=== PATIENT | male | born 1965 | race Native Hawaiian/Other Pacific Islander ===

== ENCOUNTER 2018-10-08 10:57 | Emergency (ER) | payer MEDICARE, OTHER ==
[~2018-10-08] VITALS: Ht 170.2 cm; Wt 88.1 kg
[~2018-10-08 10:57] MED LIST: ATOM40 PO; CLON-570 PO; DIVA500T69 PO; GABA-533 PO; OLAN5TAB40 PO
[2018-10-08] MEDS ORDERED: QUET200T PO (11:51)
[2018-10-08] MEDS ORDERED: ATOM40 PO (11:51)
[2018-10-08] MEDS ORDERED: VALP250S23 PO (11:51)
[2018-10-08] MEDS ORDERED: VITAD1000 PO (11:51)
[2018-10-08] MEDS ORDERED: LEVO25TA9 PO (11:51)
[2018-10-08] MEDS ORDERED: LITH300C3 PO (11:51)
[2018-10-08] MEDS ORDERED: LORA10TA7 PO (11:51)
[2018-10-08] MEDS ORDERED: PALI234D IM (11:51)
[2018-10-08] MEDS ORDERED: MELA5TAB12 PO (11:51)
[2018-10-08] MEDS ORDERED: ARIP10TA8 PO (11:51)
[2018-10-08] MEDS ORDERED: METO25 PO (11:51)
[2018-10-08] MEDS ORDERED: TRAZ150 PO (11:51)
[2018-10-08 12:19] LABS: HEMATOCRIT 38.7 % (41-53); HEMOGLOBIN 12.9 g/dL (13.5-17.5); MEAN CORPUSCULAR HEMOGLOBIN 32.3 pg (26.0-34.0); MEAN CORPUSCULAR HGB CONC 33.2 G/dL (31.0-37.0); MEAN CORPUSCULAR VOLUME 97 fL (80-100); PLATELET COUNT (AUTO) 145 K/uL (150-450); RED BLOOD CELL COUNT(AUTO) 3.98 MIL/uL (4.50-5.90); RED CELL DISTRIBUTION WIDTH 13.3 % (11.5-14.5)
[2018-10-08 12:27] LABS: ANION GAP 3 mmol/L (8-16); CALCIUM, TOTAL 9.2 mg/dL (8.8-10.5); CARBON DIOXIDE 30 mmol/L (22-29); CHLORIDE 105 mmol/L (98-107); CREATININE 0.89 mg/dL (0.60-1.30); GLOMERULAR FILTR. RATE CALC > 60 mL/min (>60); GLUCOSE,RANDOM 86 mg/dL (70-110); POTASSIUM 4.2 mmol/L (3.5-5.1); SODIUM SERUM 138 mmol/L (136-145); UREA NITROGEN, BLOOD 13 mg/dL (7-18)
[2018-10-08 12:30] LABS: LITHIUM 0.97 mmol/L (0.60-1.20)
[2018-10-08 12:40] LABS: ALANINE AMINOTRANSFERASE 16 U/L (12-78); ALBUMIN 2.9 g/dL (3.4-5.0); ALKALINE PHOSPHATASE 65 U/L (46-116); ASPARTATE AMINOTRANSFERASE 26 U/L (15-37); BILIRUBIN,TOTAL 0.4 mg/dL (0.1-1.0); THYROID STIMULATING HORMONE 2.36 uIU/mL (0.36-3.74); TOTAL PROTEIN, SERUM 6.6 g/dL (6.4-8.2)
[2018-10-08 13:32] LABS: BAND NEUTROPHILS % (MANUAL) 25 % (0-5); LYMPHOCYTES % (MANUAL) 4 % (22-44); MONOCYTES % (MANUAL) 9 % (2-9); SEGMENTED NEUTROPHILS % 62 % (40-70)
[2018-10-08 15:17] LABS: APPEARANCE,URINE CLEAR (CLEAR); BILIRUBIN,URINE NEGATIVE (NEGATIVE); GLUCOSE, URINE (UA) NEGATIVE (NEGATIVE); KETONES,URINE NEGATIVE (NEGATIVE); LEUKOCYTE ESTERASE ,URINE NEGATIVE (NEGATIVE); NITRATE,URINE NEGATIVE (NEGATIVE); OCCULT BLOOD,URINE NEGATIVE (NEGATIVE); PROTEIN,URINE NEGATIVE (NEGATIVE)
[2018-10-08 15:22] LABS: AMPHET/METH SCREEN,URINE NEGATIVE (NEGATIVE); BARBITURATE SCREEN, URINE NEGATIVE (NEGATIVE); BENZODIAZEPINES SCREEN,URINE NEGATIVE (NEGATIVE); CANNABINOID SCREEN,URINE NEGATIVE (NEGATIVE); COCAINE SCREEN,URINE NEGATIVE (NEGATIVE); METHADONE SCREEN, URINE NEGATIVE (NEGATIVE); OPIATE SCREEN,URINE NEGATIVE (NEGATIVE)
[2018-10-08 15:23] LABS: PHENCYCLIDINE SCREEN,URINE NEGATIVE (NEGATIVE)
[2018-10-08] MEDS ORDERED: ACETAMINOPHEN 500 MG TABLET PO ONE (16:00)
[2018-10-08 16:46] LABS: INFLUENZA TYPE A NEGATIVE FOR TYPE A (NEGATIVE); INFLUENZA TYPE B NEGATIVE FOR TYPE B (NEGATIVE)
[2018-10-08 18:12] VITALS: BP 116/50
== END 2018-10-08 18:56 | disposition home or self-care (01) ==
LOC: EMS 11:00
DX: F20.9 Schizophrenia, unspecified (principal); R25.1 Tremor, unspecified; E03.9 Hypothyroidism, unspecified; K59.00 Constipation, unspecified; Z79.899 Other long term (current) drug therapy; Z88.8 Allergy status to other drugs, medicaments and biological substances
CPT/HCPCS: 36415; 80053; 80178; 80307; 81003; 84443; 85025; 87804; 93005; 99285; G0480

== ENCOUNTER 2021-07-16 16:03 | Emergency (ER) | payer MEDICARE, OTHER ==
[~2021-07-16] VITALS: Ht 172.7 cm; Wt 90.9 kg
[~2021-07-16 16:03] MED LIST changes: +ARIP10TA38 PO; -ATOM40 PO; +ATOM40CA9 PO; +CHOL100018 PO; -CLON-570 PO; -DIVA500T69 PO; -GABA-533 PO; +LEVO25TA9 PO; +LITH300C3 PO; +LORA10TA7 PO; +MELA5TAB12 PO; +METO25 PO; -OLAN5TAB40 PO; +PALI234D IM; +QUET200T PO; +TRAZ150T80 PO; +VALP250S23 PO
[2021-07-16 17:27] LABS: COVID AG,FIA SOURCE NASAL SWAB
[2021-07-16 17:50] LABS: INFLUENZA TYPE A NEGATIVE FOR TYPE A (NEGATIVE); INFLUENZA TYPE B NEGATIVE FOR TYPE B (NEGATIVE)
[2021-07-16] MEDS ORDERED: ACETAMINOPHEN 325 MG TABLET ONE (20:55)
[2021-07-16 21:03] VITALS: BP 129/75
[2021-07-16] MEDS ORDERED: ACETAMINOPHEN 325 MG TABLET PO ONE (21:15)
== END 2021-07-16 21:31 | disposition home or self-care (01) ==
LOC: EMS 16:06
DX: U07.1 COVID-19 (principal); I25.10 Atherosclerotic heart disease of native coronary artery without angina pectoris; F20.9 Schizophrenia, unspecified
CPT/HCPCS: 71045; 87804; 99284

== ENCOUNTER 2021-07-25 09:40 | Inpatient (IN) | payer MEDICARE, OTHER ==
[~2021-07-25] VITALS: Ht 182.9 cm; Wt 82.0 kg
[2021-07-25] MEDS ORDERED: DiphenhydrAMINE HCL 50 MG/ML VIAL IVP ONE (10:45)
[2021-07-25 10:53] LABS: BASOPHILS % (AUTO) 0.1 % (0.0-2.0); EOSINOPHILS % (AUTO) 0.3 % (1.0-6.0); HEMATOCRIT 39.7 % (41-53); HEMOGLOBIN 13.4 g/dL (13.5-17.5); LYMPHOCYTES # (AUTO) 0.5 K/uL (1.0-4.8); MEAN CORPUSCULAR HEMOGLOBIN 32.2 pg (26.0-34.0); MEAN CORPUSCULAR HGB CONC 33.8 G/dL (31.0-37.0); MEAN CORPUSCULAR VOLUME 95 fL (80-100); MONOCYTES # (AUTO) 0.9 K/uL (0.1-1.0); MONOCYTES % (AUTO) 15.1 % (2.0-9.0); NEUTROPHILS # (AUTO) 4.5 K/uL (1.8-7.7); NEUTROPHILS % (AUTO) 76.5 % (40.0-70.0); PLATELET COUNT (AUTO) 164 K/uL (150-450); RED BLOOD CELL COUNT(AUTO) 4.16 MIL/uL (4.50-5.90); RED CELL DISTRIBUTION WIDTH 13.2 % (11.5-14.5)
[2021-07-25 11:07] LABS: CALCIUM, TOTAL 9.4 mg/dL (8.8-10.5); CREATININE 1.51 mg/dL (0.60-1.30); POTASSIUM 4.2 mmol/L (3.5-5.1)
[2021-07-25 11:12] LABS: ALBUMIN 2.4 g/dL (3.4-5.0); BILIRUBIN,TOTAL 0.5 mg/dL (0.1-1.0); TOTAL PROTEIN, SERUM 7.3 g/dL (6.4-8.2)
[2021-07-25] MEDS ORDERED: HALO10 PO (11:24)
[2021-07-25] MEDS ORDERED: PALI234D IM (11:24)
[2021-07-25 12:46] LABS: COVID AG,FIA SOURCE NASOPHARYNGEAL
[2021-07-25 16:10] VITALS: BP 123/62
[2021-07-25] MEDS ORDERED: DiphenhydrAMINE HCL 50 MG/ML VIAL IVP PRN (16:15)
[2021-07-25] MEDS ORDERED: GuaiFENesin/D-METHORPHAN/PHENYLEPH 5 ML LIQUID ORAL.SYG PO SCH (18:00)
[2021-07-25] MEDS ORDERED: GuaiFENesin/D-METHORPHAN/PHENYLEPH 5 ML LIQUID ORAL.SYG PO PRN (18:15)
[2021-07-25 20:33] VITALS: BP 130/68
[2021-07-25] MEDS ORDERED: MORPHINE SULFATE 2 MG/ML SYRINGE IVP PRN (22:00)
[2021-07-25] MEDS ORDERED: ALBUTEROL SULFATE 2.5 MG/0.5 ML NEB SOLUTION NEB PRN (22:00)
[2021-07-25] MEDS ORDERED: BISACODYL 10 MG RECTAL RECTAL SUPPOSITORY PR PRN (22:00)
[2021-07-25] MEDS ORDERED: MAGNESIUM HYDROXIDE SUSPENSION 30 ML UDCUP PO PRN (22:00)
[2021-07-25] MEDS ORDERED: ZOLPIDEM TARTRATE 5 MG TABLET PO PRN (22:00)
[2021-07-25] MEDS ORDERED: HYDROCODONE/ACETAMINOPHEN 5-325 MG TABLET PO PRN (22:00)
[2021-07-25] MEDS ORDERED: ONDANSETRON HCL 4 MG/2 ML VIAL IVP PRN (22:00)
[2021-07-25] MEDS ORDERED: ACETAMINOPHEN 325 MG TABLET PO PRN (22:00)
[2021-07-25] MEDS ORDERED: IPRATROPIUM BROMIDE 0.5 MG/2.5 ML NEB SOLUTION NEB PRN (22:00)
[2021-07-25 23:04] LABS: LITHIUM 2.54 mmol/L (0.60-1.20)
[2021-07-25 23:54] LABS: ABG BASE EXCESS 5.4 mmol/L (-2.0-3.0); ABG CARBOXYHEMOGLOBIN 0.4 % (0.0-1.5); ABG HCO3 28.6 mmol/L (22.0-26.0); ABG METHEMOGLOBIN 0.3 % (0.0-1.5); ABG OXYGEN CONTENT 15.1 mL/dL (15.0-23.0); ABG OXYHEMOGLOBIN 89.4 % (94.0-100.0); ABG PCO2 45 mmHg (35-45); PO2, ARTERIAL BG 60.7 mmHg (84.0-92.0); SOURCE, BLOOD GAS ARTERIAL; TEMPERATURE, FAHRENHEIT, BG 98.6 FAHREN (96.0-98.6)
[2021-07-25 23:55] LABS: O2 DEVICE,BLOOD GAS CANNULA (ROOM AIR); SITE, BLOOD GAS RT RADIAL
[2021-07-26] VITALS (7 sets, daily range): BP systolic 107–142; BP diastolic 59–73
[2021-07-26] MEDS ORDERED: SODIUM CHLORIDE 0.9% 100 ML ONE (00:21)
[2021-07-26] MEDS: HEPARIN SODIUM,PORCINE 5,000 UNITS/ML VIAL SQ SCH ×3 (00:24→16:01)
[2021-07-26] MEDS: PIPERACILLIN/TAZO 3.375 GM/D5W 50 ML IV SCH ×2 (00:25→04:19)
[2021-07-26] MEDS: LEVOTHYROXINE SODIUM 25 MCG TABLET PO SCH (06:01)
[2021-07-26 07:16] LABS: BASOPHILS % (AUTO) 0.2 % (0.0-2.0); EOSINOPHILS % (AUTO) 0.1 % (1.0-6.0); HEMOGLOBIN 12.7 g/dL (13.5-17.5); LYMPHOCYTES # (AUTO) 0.7 K/uL (1.0-4.8); LYMPHOCYTES % (AUTO) 8.4 % (22.0-44.0); MEAN CORPUSCULAR HEMOGLOBIN 33.3 pg (26.0-34.0); MEAN CORPUSCULAR HGB CONC 34.4 G/dL (31.0-37.0); MEAN CORPUSCULAR VOLUME 97 fL (80-100); MONOCYTES # (AUTO) 1.1 K/uL (0.1-1.0); MONOCYTES % (AUTO) 12.5 % (2.0-9.0); NEUTROPHILS # (AUTO) 6.9 K/uL (1.8-7.7); NEUTROPHILS % (AUTO) 78.8 % (40.0-70.0); PLATELET COUNT (AUTO) 194 K/uL (150-450); RED BLOOD CELL COUNT(AUTO) 3.82 MIL/uL (4.50-5.90); RED CELL DISTRIBUTION WIDTH 13.5 % (11.5-14.5)
[2021-07-26 07:27] LABS: ALBUMIN 2.1 g/dL (3.4-5.0); BILIRUBIN,TOTAL 0.7 mg/dL (0.1-1.0); CALCIUM, TOTAL 9.2 mg/dL (8.8-10.5); CREATININE 1.35 mg/dL (0.60-1.30); POTASSIUM 4.3 mmol/L (3.5-5.1); TOTAL PROTEIN, SERUM 7.1 g/dL (6.4-8.2)
[2021-07-26] MEDS: CHOLECALCIFEROL (VIT D3) 1,000 UNITS [25 MCG] TABLET PO SCH (08:23)
[2021-07-26] MEDS: HALOPERIDOL 10 MG TABLET PO SCH (08:23)
[2021-07-26] MEDS: LORATADINE 10 MG TABLET PO SCH (08:23)
[2021-07-26] MEDS: METOPROLOL TARTRATE 25 MG TABLET PO SCH ×2 (08:23→21:51)
[2021-07-26] MEDS: DOCUSATE SODIUM 100 MG CAPSULE PO SCH ×2 (08:23→21:52)
[2021-07-26] MEDS: ATOMOXETINE HCL 40 MG CAPSULE PO SCH ×2 (08:24→21:53)
[2021-07-26] MEDS: ARIPiprazole 10 MG TABLET PO SCH (08:24)
[2021-07-26] MEDS: PANTOPRAZOLE SODIUM 40 MG/VIAL IVP SCH (08:24)
[2021-07-26] MEDS: VALPROIC ACID 250 MG CAPSULE PO SCH ×3 (08:24→21:53)
[2021-07-26] MEDS ORDERED: LITHIUM CARBONATE 300 MG CAPSULE PO SCH (09:00)
[2021-07-26] MEDS ORDERED: REMDESIVIR 200 MG in SODIUM CHLORIDE 0.9% 250 ML IV ONE (09:45)
[2021-07-26] MEDS: DEXAMETHASONE SOD PHOS 4 MG/ML VIAL IVP SCH (11:10)
[2021-07-26 11:33] LABS: C-REACTIVE PROTEIN QUANT 20.78 mg/dL (0.00-0.30)
[2021-07-26] MEDS: DOXYCYCLINE HYCLATE 100 MG TABLET PO SCH ×2 (13:56→21:53)
[2021-07-26] MEDS: CefTRIAXone 1 GM/DEXTROSE 50 ML IV SCH (13:57)
[2021-07-26] MEDS ORDERED: SODIUM CHLORIDE 0.9% 500 ML IV ONE (15:11)
[2021-07-26] MEDS: QUEtiapine FUMARATE 200 MG TABLET PO SCH (21:51)
[2021-07-26] MEDS: TraZODone HCL 150 MG TABLET PO SCH (21:52)
[2021-07-26] MEDS: MELATONIN 5 MG TABLET PO SCH (21:52)
[2021-07-27] MEDS: HEPARIN SODIUM,PORCINE 5,000 UNITS/ML VIAL SQ SCH ×3 (00:10→15:16)
[2021-07-27] MEDS: LEVOTHYROXINE SODIUM 25 MCG TABLET PO SCH (05:35)
[2021-07-27 05:46] VITALS: BP 123/70
[2021-07-27 06:38] LABS: C-REACTIVE PROTEIN QUANT 17.07 mg/dL (0.00-0.30)
[2021-07-27] MEDS: METOPROLOL TARTRATE 25 MG TABLET PO SCH ×2 (08:00→22:17)
[2021-07-27] MEDS: CHOLECALCIFEROL (VIT D3) 1,000 UNITS [25 MCG] TABLET PO SCH (08:00)
[2021-07-27] MEDS: HALOPERIDOL 10 MG TABLET PO SCH (08:00)
[2021-07-27] MEDS: DOCUSATE SODIUM 100 MG CAPSULE PO SCH ×2 (08:00→22:18)
[2021-07-27] MEDS: ATOMOXETINE HCL 40 MG CAPSULE PO SCH ×2 (08:00→22:18)
[2021-07-27] MEDS: DOXYCYCLINE HYCLATE 100 MG TABLET PO SCH ×2 (08:00→22:18)
[2021-07-27] MEDS: ARIPiprazole 10 MG TABLET PO SCH (08:00)
[2021-07-27] MEDS: LORATADINE 10 MG TABLET PO SCH (08:00)
[2021-07-27] MEDS: VALPROIC ACID 250 MG CAPSULE PO SCH ×3 (08:00→22:18)
[2021-07-27] MEDS: DEXAMETHASONE SOD PHOS 4 MG/ML VIAL IVP SCH (08:01)
[2021-07-27] MEDS: PANTOPRAZOLE SODIUM 40 MG/VIAL IVP SCH (08:01)
[2021-07-27 08:30] VITALS: BP 136/75
[2021-07-27] MEDS: REMDESIVIR 100 MG in SODIUM CHLORIDE 0.9% 250 ML IV SCH (10:18)
[2021-07-27] MEDS: CefTRIAXone 1 GM/DEXTROSE 50 ML IV SCH (12:53)
[2021-07-27 14:26] LABS: BASOPHILS % (AUTO) 0.2 % (0.0-2.0); EOSINOPHILS % (AUTO) 0.1 % (1.0-6.0); HEMATOCRIT 35.9 % (41-53); LYMPHOCYTES # (AUTO) 0.3 K/uL (1.0-4.8); LYMPHOCYTES % (AUTO) 4.3 % (22.0-44.0); MEAN CORPUSCULAR HEMOGLOBIN 32.3 pg (26.0-34.0); MEAN CORPUSCULAR HGB CONC 33.5 G/dL (31.0-37.0); MEAN CORPUSCULAR VOLUME 97 fL (80-100); MONOCYTES # (AUTO) 0.4 K/uL (0.1-1.0); MONOCYTES % (AUTO) 5.5 % (2.0-9.0); NEUTROPHILS # (AUTO) 7.3 K/uL (1.8-7.7); PLATELET COUNT (AUTO) 236 K/uL (150-450); RED BLOOD CELL COUNT(AUTO) 3.72 MIL/uL (4.50-5.90); RED CELL DISTRIBUTION WIDTH 13.5 % (11.5-14.5)
[2021-07-27 14:28] LABS: NEUTROPHILS % (AUTO) 89.9 % (40.0-70.0)
[2021-07-27 14:48] LABS: ANION GAP 2 mmol/L (8-16); CALCIUM, TOTAL 9.4 mg/dL (8.8-10.5); CARBON DIOXIDE 33 mmol/L (22-29); CHLORIDE 107 mmol/L (98-107); CREATININE 1.16 mg/dL (0.60-1.30); GLOMERULAR FILTR. RATE CALC > 60 mL/min (>60); GLUCOSE,RANDOM 135 mg/dL (70-110); LITHIUM 2.26 mmol/L (0.60-1.20); POTASSIUM 4.5 mmol/L (3.5-5.1); SODIUM SERUM 142 mmol/L (136-145); UREA NITROGEN, BLOOD 38 mg/dL (7-18)
[2021-07-27 14:52] LABS: ALANINE AMINOTRANSFERASE 19 U/L (12-78); ALBUMIN 1.9 g/dL (3.4-5.0); ALKALINE PHOSPHATASE 110 U/L (46-116); ASPARTATE AMINOTRANSFERASE 40 U/L (15-37); BILIRUBIN,TOTAL 0.2 mg/dL (0.1-1.0); TOTAL PROTEIN, SERUM 6.9 g/dL (6.4-8.2)
[2021-07-27 16:02] VITALS: BP 125/73
[2021-07-27 19:39] VITALS: BP 138/71
[2021-07-27] MEDS: TraZODone HCL 150 MG TABLET PO SCH (22:17)
[2021-07-27] MEDS: QUEtiapine FUMARATE 200 MG TABLET PO SCH (22:18)
[2021-07-27] MEDS: MELATONIN 5 MG TABLET PO SCH (22:18)
[2021-07-28] MEDS: HEPARIN SODIUM,PORCINE 5,000 UNITS/ML VIAL SQ SCH ×4 (00:32→23:30)
[2021-07-28 04:26] VITALS: BP 123/72
[2021-07-28] MEDS: LEVOTHYROXINE SODIUM 25 MCG TABLET PO SCH (06:15)
[2021-07-28 06:30] LABS: BASOPHILS % (AUTO) 0.1 % (0.0-2.0); EOSINOPHILS % (AUTO) 0 % (1.0-6.0); HEMATOCRIT 33.9 % (41-53); HEMOGLOBIN 11.7 g/dL (13.5-17.5); LYMPHOCYTES # (AUTO) 0.7 K/uL (1.0-4.8); LYMPHOCYTES % (AUTO) 6.1 % (22.0-44.0); MEAN CORPUSCULAR HEMOGLOBIN 33.6 pg (26.0-34.0); MEAN CORPUSCULAR HGB CONC 34.5 G/dL (31.0-37.0); MEAN CORPUSCULAR VOLUME 97 fL (80-100); MONOCYTES # (AUTO) 1.1 K/uL (0.1-1.0); MONOCYTES % (AUTO) 10.5 % (2.0-9.0); NEUTROPHILS % (AUTO) 83.3 % (40.0-70.0); PLATELET COUNT (AUTO) 283 K/uL (150-450); RED BLOOD CELL COUNT(AUTO) 3.48 MIL/uL (4.50-5.90); RED CELL DISTRIBUTION WIDTH 13.2 % (11.5-14.5)
[2021-07-28 07:18] LABS: ALBUMIN 1.9 g/dL (3.4-5.0); BILIRUBIN,TOTAL 0.2 mg/dL (0.1-1.0); C-REACTIVE PROTEIN QUANT 6.56 mg/dL (0.00-0.30); CALCIUM, TOTAL 9.3 mg/dL (8.8-10.5); CREATININE 1.3 mg/dL (0.60-1.30); POTASSIUM 4.1 mmol/L (3.5-5.1); TOTAL PROTEIN, SERUM 6.7 g/dL (6.4-8.2)
[2021-07-28 07:32] VITALS: BP 128/67
[2021-07-28] MEDS: PANTOPRAZOLE SODIUM 40 MG/VIAL IVP SCH (09:23)
[2021-07-28] MEDS: HALOPERIDOL 10 MG TABLET PO SCH (09:24)
[2021-07-28] MEDS: DOXYCYCLINE HYCLATE 100 MG TABLET PO SCH ×2 (09:24→21:00)
[2021-07-28] MEDS: LORATADINE 10 MG TABLET PO SCH (09:24)
[2021-07-28] MEDS: DOCUSATE SODIUM 100 MG CAPSULE PO SCH ×2 (09:24→21:00)
[2021-07-28] MEDS: METOPROLOL TARTRATE 25 MG TABLET PO SCH ×2 (09:24→21:00)
[2021-07-28] MEDS: ARIPiprazole 10 MG TABLET PO SCH (09:24)
[2021-07-28] MEDS: ATOMOXETINE HCL 40 MG CAPSULE PO SCH ×2 (09:24→21:00)
[2021-07-28] MEDS: DEXAMETHASONE SOD PHOS 4 MG/ML VIAL IVP SCH (09:24)
[2021-07-28] MEDS: CHOLECALCIFEROL (VIT D3) 1,000 UNITS [25 MCG] TABLET PO SCH (09:25)
[2021-07-28] MEDS: VALPROIC ACID 250 MG CAPSULE PO SCH ×3 (09:25→21:00)
[2021-07-28] MEDS: REMDESIVIR 100 MG in SODIUM CHLORIDE 0.9% 250 ML IV SCH (09:26)
[2021-07-28] MEDS: CefTRIAXone 1 GM/DEXTROSE 50 ML IV SCH (11:53)
[2021-07-28 15:30] VITALS: BP 121/69
[2021-07-28 19:18] VITALS: BP 141/76
[2021-07-28] MEDS: MELATONIN 5 MG TABLET PO SCH (21:00)
[2021-07-28] MEDS: TraZODone HCL 150 MG TABLET PO SCH (21:00)
[2021-07-28] MEDS: QUEtiapine FUMARATE 200 MG TABLET PO SCH (21:00)
[2021-07-29 04:18] VITALS: BP 143/79
[2021-07-29] MEDS: LEVOTHYROXINE SODIUM 25 MCG TABLET PO SCH (06:12)
[2021-07-29 07:53] LABS: BASOPHILS % (AUTO) 0.4 % (0.0-2.0); EOSINOPHILS % (AUTO) 0.2 % (1.0-6.0); HEMATOCRIT 38.1 % (41-53); HEMOGLOBIN 13.3 g/dL (13.5-17.5); LYMPHOCYTES # (AUTO) 0.9 K/uL (1.0-4.8); LYMPHOCYTES % (AUTO) 13.2 % (22.0-44.0); MEAN CORPUSCULAR HEMOGLOBIN 33.9 pg (26.0-34.0); MEAN CORPUSCULAR HGB CONC 34.7 G/dL (31.0-37.0); MEAN CORPUSCULAR VOLUME 98 fL (80-100); MONOCYTES # (AUTO) 0.5 K/uL (0.1-1.0); MONOCYTES % (AUTO) 7.7 % (2.0-9.0); NEUTROPHILS # (AUTO) 5.4 K/uL (1.8-7.7); NEUTROPHILS % (AUTO) 78.5 % (40.0-70.0); PLATELET COUNT (AUTO) 334 K/uL (150-450); RED CELL DISTRIBUTION WIDTH 13.7 % (11.5-14.5)
[2021-07-29] MEDS: DEXAMETHASONE SOD PHOS 4 MG/ML VIAL IVP SCH (07:54)
[2021-07-29] MEDS: HEPARIN SODIUM,PORCINE 5,000 UNITS/ML VIAL SQ SCH ×3 (07:54→23:23)
[2021-07-29] MEDS: PANTOPRAZOLE SODIUM 40 MG/VIAL IVP SCH (07:55)
[2021-07-29] MEDS: VALPROIC ACID 250 MG CAPSULE PO SCH ×3 (07:55→20:22)
[2021-07-29] MEDS: HALOPERIDOL 10 MG TABLET PO SCH (07:55)
[2021-07-29] MEDS: ARIPiprazole 10 MG TABLET PO SCH (07:55)
[2021-07-29] MEDS: DOXYCYCLINE HYCLATE 100 MG TABLET PO SCH ×2 (07:56→20:21)
[2021-07-29] MEDS: DOCUSATE SODIUM 100 MG CAPSULE PO SCH ×2 (07:56→20:21)
[2021-07-29] MEDS: METOPROLOL TARTRATE 25 MG TABLET PO SCH ×2 (07:56→20:21)
[2021-07-29] MEDS: CHOLECALCIFEROL (VIT D3) 1,000 UNITS [25 MCG] TABLET PO SCH (07:56)
[2021-07-29] MEDS: ATOMOXETINE HCL 40 MG CAPSULE PO SCH ×2 (07:56→20:21)
[2021-07-29] MEDS: LORATADINE 10 MG TABLET PO SCH (07:56)
[2021-07-29 08:20] VITALS: BP 156/82
[2021-07-29 08:32] LABS: ALANINE AMINOTRANSFERASE 22 U/L (12-78); ALBUMIN 2.2 g/dL (3.4-5.0); ALKALINE PHOSPHATASE 149 U/L (46-116); ANION GAP 2 mmol/L (8-16); ASPARTATE AMINOTRANSFERASE 35 U/L (15-37); BILIRUBIN,TOTAL 0.3 mg/dL (0.1-1.0); CALCIUM, TOTAL 9.5 mg/dL (8.8-10.5); CARBON DIOXIDE 33 mmol/L (22-29); CHLORIDE 104 mmol/L (98-107); CREATININE 1.11 mg/dL (0.60-1.30); FERRITIN 1480 ng/mL (26-388); GLOMERULAR FILTR. RATE CALC > 60 mL/min (>60); GLUCOSE,RANDOM 99 mg/dL (70-110); POTASSIUM 3.8 mmol/L (3.5-5.1); SODIUM SERUM 139 mmol/L (136-145); TOTAL PROTEIN, SERUM 7.7 g/dL (6.4-8.2); UREA NITROGEN, BLOOD 33 mg/dL (7-18)
[2021-07-29] MEDS: REMDESIVIR 100 MG in SODIUM CHLORIDE 0.9% 250 ML IV SCH (09:38)
[2021-07-29] MEDS: CefTRIAXone 1 GM/DEXTROSE 50 ML IV SCH (11:33)
[2021-07-29 15:07] LABS: S PNEUMO SOURCE Urine; STREP PNEUMONIAE AG URINE Negative (Negative)
[2021-07-29 16:03] VITALS: BP 131/75
[2021-07-29 16:07] LABS: LEGIONELLA PNEUMO AG URINE Negative (Negative)
[2021-07-29] MEDS: MELATONIN 5 MG TABLET PO SCH (20:21)
[2021-07-29] MEDS: TraZODone HCL 150 MG TABLET PO SCH (20:21)
[2021-07-29] MEDS: QUEtiapine FUMARATE 200 MG TABLET PO SCH (20:21)
[2021-07-29 21:00] VITALS: BP 141/80
[2021-07-30 04:06] VITALS: BP 154/88
[2021-07-30] MEDS: LEVOTHYROXINE SODIUM 25 MCG TABLET PO SCH (05:41)
[2021-07-30 08:14] LABS: BASOPHILS % (AUTO) 0.2 % (0.0-2.0); EOSINOPHILS % (AUTO) 0.5 % (1.0-6.0); HEMATOCRIT 38.2 % (41-53); HEMOGLOBIN 13.1 g/dL (13.5-17.5); LYMPHOCYTES # (AUTO) 1.7 K/uL (1.0-4.8); LYMPHOCYTES % (AUTO) 30.3 % (22.0-44.0); MEAN CORPUSCULAR HGB CONC 34.2 G/dL (31.0-37.0); MEAN CORPUSCULAR VOLUME 96 fL (80-100); MONOCYTES # (AUTO) 0.6 K/uL (0.1-1.0); NEUTROPHILS # (AUTO) 3.2 K/uL (1.8-7.7); PLATELET COUNT (AUTO) 330 K/uL (150-450); RED BLOOD CELL COUNT(AUTO) 3.97 MIL/uL (4.50-5.90); RED CELL DISTRIBUTION WIDTH 13.5 % (11.5-14.5)
[2021-07-30 08:27] LABS: ANION GAP 3 mmol/L (8-16); CALCIUM, TOTAL 9.2 mg/dL (8.8-10.5); CARBON DIOXIDE 33 mmol/L (22-29); CHLORIDE 105 mmol/L (98-107); GLOMERULAR FILTR. RATE CALC > 60 mL/min (>60); GLUCOSE,RANDOM 87 mg/dL (70-110); POTASSIUM 4.1 mmol/L (3.5-5.1); SODIUM SERUM 141 mmol/L (136-145); UREA NITROGEN, BLOOD 25 mg/dL (7-18)
[2021-07-30 08:54] VITALS: BP 142/66
[2021-07-30] MEDS: DOCUSATE SODIUM 100 MG CAPSULE PO SCH ×2 (09:00→21:15)
[2021-07-30 09:14] LABS: ALANINE AMINOTRANSFERASE 19 U/L (12-78); ALKALINE PHOSPHATASE 129 U/L (46-116); ASPARTATE AMINOTRANSFERASE 27 U/L (15-37); BILIRUBIN,TOTAL 0.4 mg/dL (0.1-1.0); C-REACTIVE PROTEIN QUANT 1.63 mg/dL (0.00-0.30); FERRITIN 1294 ng/mL (26-388); TOTAL PROTEIN, SERUM 6.7 g/dL (6.4-8.2)
[2021-07-30] MEDS: VALPROIC ACID 250 MG CAPSULE PO SCH ×4 (09:18→21:15)
[2021-07-30] MEDS: LORATADINE 10 MG TABLET PO SCH (09:18)
[2021-07-30] MEDS: PANTOPRAZOLE SODIUM 40 MG/VIAL IVP SCH (09:18)
[2021-07-30] MEDS: ARIPiprazole 10 MG TABLET PO SCH (09:18)
[2021-07-30] MEDS: HALOPERIDOL 10 MG TABLET PO SCH (09:18)
[2021-07-30] MEDS: METOPROLOL TARTRATE 25 MG TABLET PO SCH ×2 (09:19→21:15)
[2021-07-30] MEDS: CHOLECALCIFEROL (VIT D3) 1,000 UNITS [25 MCG] TABLET PO SCH (09:19)
[2021-07-30] MEDS: ATOMOXETINE HCL 40 MG CAPSULE PO SCH ×2 (09:19→21:15)
[2021-07-30] MEDS: DOXYCYCLINE HYCLATE 100 MG TABLET PO SCH ×2 (09:19→21:15)
[2021-07-30] MEDS: HEPARIN SODIUM,PORCINE 5,000 UNITS/ML VIAL SQ SCH ×3 (09:19→23:12)
[2021-07-30] MEDS: DEXAMETHASONE SOD PHOS 4 MG/ML VIAL IVP SCH (09:20)
[2021-07-30] MEDS: REMDESIVIR 100 MG in SODIUM CHLORIDE 0.9% 250 ML IV SCH (09:43)
[2021-07-30] MEDS: CefTRIAXone 1 GM/DEXTROSE 50 ML IV SCH (12:23)
[2021-07-30 16:11] VITALS: BP 120/70
[2021-07-30] MEDS: MELATONIN 5 MG TABLET PO SCH (21:15)
[2021-07-30] MEDS: TraZODone HCL 150 MG TABLET PO SCH (21:15)
[2021-07-30] MEDS: QUEtiapine FUMARATE 200 MG TABLET PO SCH (21:15)
[2021-07-30 21:43] VITALS: BP 126/75
[2021-07-31 05:49] VITALS: BP 130/76
[2021-07-31] MEDS: LEVOTHYROXINE SODIUM 25 MCG TABLET PO SCH (06:03)
[2021-07-31 06:40] LABS: BASOPHILS % (AUTO) 0.6 % (0.0-2.0); EOSINOPHILS % (AUTO) 1.5 % (1.0-6.0); HEMATOCRIT 35.1 % (41-53); HEMOGLOBIN 12.1 g/dL (13.5-17.5); LYMPHOCYTES # (AUTO) 1.8 K/uL (1.0-4.8); LYMPHOCYTES % (AUTO) 20.5 % (22.0-44.0); MEAN CORPUSCULAR HEMOGLOBIN 32.9 pg (26.0-34.0); MEAN CORPUSCULAR HGB CONC 34.6 G/dL (31.0-37.0); MEAN CORPUSCULAR VOLUME 95 fL (80-100); MONOCYTES % (AUTO) 11.9 % (2.0-9.0); NEUTROPHILS # (AUTO) 5.7 K/uL (1.8-7.7); NEUTROPHILS % (AUTO) 65.5 % (40.0-70.0); PLATELET COUNT (AUTO) 312 K/uL (150-450); RED BLOOD CELL COUNT(AUTO) 3.68 MIL/uL (4.50-5.90); RED CELL DISTRIBUTION WIDTH 13.5 % (11.5-14.5)
[2021-07-31 06:47] LABS: LITHIUM 0.71 mmol/L (0.60-1.20)
[2021-07-31 06:55] LABS: ALANINE AMINOTRANSFERASE 16 U/L (12-78); ALBUMIN 1.8 g/dL (3.4-5.0); ALKALINE PHOSPHATASE 129 U/L (46-116); ASPARTATE AMINOTRANSFERASE 17 U/L (15-37); BILIRUBIN,TOTAL 0.3 mg/dL (0.1-1.0); C-REACTIVE PROTEIN QUANT 1.09 mg/dL (0.00-0.30); CALCIUM, TOTAL 8.9 mg/dL (8.8-10.5); CARBON DIOXIDE 31 mmol/L (22-29); CREATININE 0.85 mg/dL (0.60-1.30); GLOMERULAR FILTR. RATE CALC > 60 mL/min (>60); GLUCOSE,RANDOM 94 mg/dL (70-110); POTASSIUM 4.6 mmol/L (3.5-5.1); TOTAL PROTEIN, SERUM 6.1 g/dL (6.4-8.2); UREA NITROGEN, BLOOD 23 mg/dL (7-18)
[2021-07-31 07:01] LABS: ANION GAP 1 mmol/L (8-16); CHLORIDE 107 mmol/L (98-107); SODIUM SERUM 139 mmol/L (136-145)
[2021-07-31 07:45] VITALS: BP 130/65
[2021-07-31] MEDS: ATOMOXETINE HCL 40 MG CAPSULE PO SCH (08:04)
[2021-07-31] MEDS: VALPROIC ACID 250 MG CAPSULE PO SCH ×2 (08:04→16:19)
[2021-07-31] MEDS: HALOPERIDOL 10 MG TABLET PO SCH (08:05)
[2021-07-31] MEDS: CHOLECALCIFEROL (VIT D3) 1,000 UNITS [25 MCG] TABLET PO SCH (08:05)
[2021-07-31] MEDS: HEPARIN SODIUM,PORCINE 5,000 UNITS/ML VIAL SQ SCH ×2 (08:05→16:20)
[2021-07-31] MEDS: DOXYCYCLINE HYCLATE 100 MG TABLET PO SCH (08:05)
[2021-07-31] MEDS: ARIPiprazole 10 MG TABLET PO SCH (08:06)
[2021-07-31] MEDS: DOCUSATE SODIUM 100 MG CAPSULE PO SCH (08:06)
[2021-07-31] MEDS: METOPROLOL TARTRATE 25 MG TABLET PO SCH (08:06)
[2021-07-31] MEDS: LORATADINE 10 MG TABLET PO SCH (08:09)
[2021-07-31] MEDS: PANTOPRAZOLE SODIUM 40 MG/VIAL IVP SCH (08:09)
[2021-07-31] MEDS: DEXAMETHASONE SOD PHOS 4 MG/ML VIAL IVP SCH (08:09)
[2021-07-31 15:51] VITALS: BP 119/67
== END 2021-07-31 20:03 | DRG 177 ==
LOC: EMS 09:40 → 5N 14:38 → 6N 07-26 17:30
PROVIDERS: ADMIT Hospitalist; ATTEND Hospitalist
PROC: XW033E5 Introduction of Remdesivir Anti-infective into Peripheral Vein, Percutaneous Approach, New Technology Group 5 (ICD-10-PCS; principal; 2021-07-26)
DX: U07.1 COVID-19 (principal); J12.82 Pneumonia due to coronavirus disease 2019; J96.01 Acute respiratory failure with hypoxia; N17.9 Acute kidney failure, unspecified; F84.0 Autistic disorder; T43.595A Adverse effect of other antipsychotics and neuroleptics, initial encounter; G24.9 Dystonia, unspecified; E03.9 Hypothyroidism, unspecified; D72.810 Lymphocytopenia; K21.9 Gastro-esophageal reflux disease without esophagitis; F71 Moderate intellectual disabilities; F20.9 Schizophrenia, unspecified; Y92.89 Other specified places as the place of occurrence of the external cause; Z88.8 Allergy status to other drugs, medicaments and biological substances
CPT/HCPCS: 71045; 80053; 80164; 80178; 82550; 82728; 82805; 83615; 84145; 85025; 85379; 86140; 87449; 87899; 93005; 97162; 97165; 97535; 99285; C9113; J0696; J1100; J1200; J1644; J2543; J7040; J7050; Q9967; 36415-L1; 36415-TC; U0003